=== PATIENT | female | born 2000 | race Two or more races ===

== ENCOUNTER 2019-06-18 08:06 | Inpatient (IN) | payer OTHER ==
[~2019-06-18] VITALS: Ht 172.7 cm; Wt 86.6 kg
[2019-06-18] MEDS ORDERED: PRENATAL TABLE1 EAC1 PO (11:17)
== END 2019-06-21 14:52 | DRG 788 ==
LOC: OB/GYN 08:06 → LDR 08:06 → OB/GYN 20:30
PROVIDERS: ADMIT Obstetrics & Gynecology
PROC: 4A1HXCZ Monitoring of Products of Conception, Cardiac Rate, External Approach (ICD-10-PCS; 2019-06-18)
PROC: 10D00Z1 Extraction of Products of Conception, Low, Open Approach (ICD-10-PCS; principal; 2019-06-18 18:00)
DX: O32.1XX0 Maternal care for breech presentation, not applicable or unspecified (principal); Z3A.39 39 weeks gestation of pregnancy; Z37.0 Single live birth